=== PATIENT | male | born 2000 | race Two or more races ===

== ENCOUNTER 2023-09-04 13:16 | Emergency (ER) | payer OTHER ==
[~2023-09-04] VITALS: Ht 177.8 cm; Wt 83.9 kg
[2023-09-04 13:30] VITALS: BP_SYST 129; PULSE 103; RESP 18; TEMP 100.1; O2SAT 98
[2023-09-04] MEDS: HYDROcodone/ACETAMIN 10-325 MG TAB PO ONE (14:16)
[2023-09-04] MEDS: ONDANSETRON 4 MG ODT TAB PO ONE (14:16)
[2023-09-04] MEDS: KETOROLAC TROMETHAMINE 60 MG/2 ML VIAL IM ONE (14:16)
[2023-09-04] MEDS ORDERED: DICL75TA5 PO (16:56)
[2023-09-04] MEDS ORDERED: DICL20GE TP (16:56)
[2023-09-04] MEDS ORDERED: HYDR-3927 PO (16:56)
== END 2023-09-04 17:00 | disposition home or self-care (01) ==
LOC: SED 13:16
DX: M96.89 Other intraoperative and postprocedural complications and disorders of the musculoskeletal system (principal); M25.461 Effusion, right knee; Z98.890 Other specified postprocedural states
CPT/HCPCS: 99285; 93971; 73564; 96372; Q0162; J1885